=== PATIENT | female | born 1945 | race Caucasian/White ===

== ENCOUNTER → 2024-09-29 10:08 | Outpatient (REF) | payer MEDICARE, OTHER, SELFPAY | LOC: RCS 10:08 | PROVIDERS: ATTENDING PHYSICIAN Internal Medicine Cardiovascular Disease; FAMILY PHYSICIAN Family Medicine | DX: I48.0 Paroxysmal atrial fibrillation (principal) | CPT/HCPCS: 93306 ==

== ENCOUNTER → 2025-02-20 11:09 | Outpatient (REF) | payer MEDICARE, OTHER, SELFPAY ==
[2025-02-20 12:40] LABS: Hematocrit 42.1 % (37.0-47.0); Hemoglobin 14.4 g/dL (12.0-16.0); Mean Corp Hgb Conc. 34.2 g/dL (33.0-37.0); Mean Corpuscular Volume 95.7 fL (81.0-99.0); Nucleated Red Blood Cells % 0 %; Platelet Count 202 10^3/uL (130-400); Red Cell Dist. Width 12.5 % (11.5-14.5)
[2025-02-20 12:45] LABS: INR 1.29; PT 16.4 Sec (11.4-14.6)
[2025-02-20 13:56] LABS: ALT (SGPT) 15 U/L (0-35); AST (SGOT) 22 U/L (14-36); Albumin 4.2 g/dl (3.5-5.0); Alkaline Phosphatase 73 U/L (38-126); Blood Urea Nitrogen 20 mg/dl (7-17); Calcium 9.2 mg/dl (8.4-10.2); Carbon Dioxide 23 mmol/L (22-30); Chloride 106 mmol/L (98-107); Glucose 98 mg/dl (70-99); Magnesium 2.1 mg/dl (1.6-2.3); Potassium 4.2 mmol/L (3.5-5.1); Sodium 136 mmol/L (135-145); Total Protein 6.3 g/dl (6.3-8.2); eGFR > 60.00
== END ==
LOC: SDSPAT 11:09
PROVIDERS: ATTENDING PHYSICIAN Internal Medicine Cardiovascular Disease; FAMILY PHYSICIAN Family Medicine
DX: I48.0 Paroxysmal atrial fibrillation (principal)
CPT/HCPCS: 36415; 80053; 83735; 85025; 85610; 86850; 86900; 86901; 93005

== ENCOUNTER 2025-03-06 06:31 | Day surgery (SDC) | payer MEDICARE, OTHER, SELFPAY ==
--- NOTE | 2025-02-20 10:46 | HPS.HSE ---
Family Physician
-
Family Physician: NO INTERVIEW UNKNOWN
Chief Complaint
-
Paroxysmal atrial fibrillation.
History of Present Illness
The patient is a 79 year old female presenting today for paroxysmal atrial fibrillation. The patient previously underwent pulmonary vein isolation in 2011 and 2019 secondary to this diagnosis. She was scheduled to undergo a third ablation
in 2022; however, this was cancelled due to a large pericardial effusion which did require emergent pericardiocentesis. She is on current pharmacological therapy with Metoprolol Succinate; however, dosing has been reduced due to persistent fatigue
while on this medication. She reports compliance with Eliquis for oral anticoagulation. She is interested in pursuing pulmonary vein isolation again for further arrhythmia management. She denies any new complaints today such as chest pain, shortness
of breath at rest, palpitations, nausea, vomiting, diarrhea, lightheadedness, dizziness, cough, sore throat, or fever.
Medical History
Past Medical History
Past Medical History: Reports Other
Additional Past Medical History:
1. Paroxysmal atrial fibrillation, status post pulmonary vein isolation x2; pharmacological therapy with Metoprolol Succinate and oral anticoagulation with Eliquis.
2. Paroxysmal atrial tachycardia.
3. Hypertension.
4. Congestive heart failure, preserved ejection fraction.
5. Pericardial effusion, 2022, likely viral in origin, status post pericardiocentesis.
6. Mild-moderate aortic regurgitation.
7. History of recurrent left lower extremity DVT, unprovoked, on Eliquis; previous hypercoagulable work-up reportedly negative.
8. Mild obstructive sleep apnea per records.
9. Chronic dyspnea on exertion.
10. GERD.
11. Colon polyps.
12. Remote migraines.
13. Osteoarthritis.
14. Overactive bladder.
15. Squamous cell carcinoma, status post excision x2.
16. Depression.
17. Anxiety.
18. Osteopenia.
19. Remote history of infrequent tobacco abuse.
Past Surgical History: Reports Other
Additional Past Surgical History:
1. Pulmonary vein isolation x2.
2. Pericardiocentesis.
3. Total abdominal hysterectomy with cystocele and rectocele repair.
4. Bilateral tubal ligation.
5. D&E.
6. Squamous cell carcinoma excision x2.
7. Multiple epidural steroid injections.
8. Dental extraction and implantation.
9. Bilateral cataract extraction.
10. Colonoscopy x2.
11. Endoscopy.
Social History
Tobacco: Former Smoker (She is a former infrequent cigarette smoker who quit tobacco in her early 20's. )
Alcohol: Other (Rare. )
Personal:
Living: Alone (in a 2 story, bilevel home. )
Family History
Family History: Not pertinent
Allergies / Home Medications
Allergy/Medication List:
Home medications:
1. Acetaminophen 1000 mg p.o. every 6 hours as needed.
2. Alprazolam 0.25 mg p.o. daily as needed.
3. Calcium 1 dose p.o. daily.
4. Citalopram 40 mg p.o. daily.
5. Cyclobenzaprine 10 mg p.o. at bedtime.
6. Prolia 60 mg subcutaneous every 6 months.
7. Eliquis 5 mg p.o. twice a day.
8. Lansoprazole 15 mg p.o. twice a day.
9. Metoprolol Succinate 25 mg p.o. twice a day.
10. Multivitamin 2 gummies p.o. daily.
11. Oxybutynin Cl 10 mg p.o. daily.
12. Vitamin D3 1 dose p.o. daily.
13. Biocorneum 1 application topical twice a day.
Allergies: Sulfa. Codeine. Cat dander. Chocolate. House dust. Pollen.
Review of Systems
-
A 12 point ROS was completed and negative except as noted: Yes
Physical Exam
Vital Signs
Blood pressure 120/67. Heart rate 65. Respirations 18. Pulse ox 98% on room air.
Height 5 feet, 3 inches. Weight 74 kg. BMI 28.9.
Physical Exam
General: Well Developed, Well Nourished and No Apparent Distress
HEENT: NormoCephalic, Moist mucous membranes, Atraumatic and PERRLA
Respiratory: Clear
Cardiac: Regular Rhythm
GI: Soft, Non Tender and Non Distended
Musculoskeletal: No Edema and Normal Gait & Station
Skin: Warm and Dry
Neuro: AO x 3 and Nonfocal/grossly intact
Laboratory Results
-
DIAGNOSTIC STUDIES as of 02/20/2025: White blood cell count 4.8. Hemoglobin 14.4. Platelet count 202,000. PT 16.4. INR 1.29. Sodium 136. Potassium 4.2. BUN 20. Creatinine 0.8. Glucose 98. Calcium 9.2. Magnesium 2.1. AST 22. ALT 15. Albumin 4.2. Type
and screen O positive.
EKG 02/20/2025: Normal sinus rhythm. T wave abnormality, consider anterolateral ischemia.
Echocardiogram 09/29/2024: Normal left ventricular size, wall thickness, and systolic function. No regional wall motion abnormalities are seen. LV ejection fraction is 59% by Whitley's method of discs. Normal right ventricular size and function.
Trace mitral regurgitation. Mild to moderate aortic regurgitation. Trace tricuspid regurgitation. Estimated pulmonary artery pressure of 20-25 mmHg. Compared to prior study of 03/02/2023, the ejection fraction currently is 59% and previously 45-50%.
Impression/Plan
-
IMPRESSION/PLAN:
1. Paroxysmal atrial fibrillation: The patient is in need of pulmonary vein isolation with Dr. Boni Roque on 03/06/2025. The benefits and risks of pulmonary vein isolation have been explained to the patient. The patient understands these
risks and wishes to proceed. She will not be required to undergo a pre-procedural transesophageal echocardiogram as she has been compliant with her home oral anticoagulation. She is aware to continue her Eliquis up until the night prior to her
procedure. She will take no medications the morning of her procedure.
[2025-02-20 12:01] VITALS: BMI 28.9
[2025-03-06] VITALS (14 sets, daily range): BP systolic 105–142; BP diastolic 59–105
[2025-03-06] MEDS: NSS 500 IV (07:29)
--- NOTE | 2025-03-06 07:38 | ITS.CL.ABL ---
Director Of Community Services - Ablation
Ablation
Procedure Report:
ELECTROPHYSIOLOGIC STUDY AND POSSIBLE ABLATION
DATE: 03/06/25
Primary Care Provider: Dr Noé Guerra
INDICATION:
Symptomatic Atrial Fibrillation.
Paroxysmal
HISTORY: See H and P.
Symptomatic AF, poorly controlled with attempted medical therapy.
She underwent pulmonary vein isolation in 2011. She had been off AAD Rx but recurred with atrial fibrillation in 2019 with event monitor demonstrating 9.4 % afib burden,. She was started on elqiuis 04/18/20.
She underwent re-PVI 06/07/20 and did well until recurrence in 2022.
She then presented for PVI and found to have large pericardial effusion on preprocedure intracardiac echocardiogram. Planned ablation was canceled. She underwent pericardiocentesis (02/26/23) removing 625 cc of fluid and she was started on
anti-inflammatory therapy including colchicine. Pathology of the fluid was negative for malignant cells. She had an echocardiogram one week later before resuming eliquis. Repeat echocardiogram with small effusion, eliquis was resumed on 03/02/23.
Subsequent echocardiogram April 01, 2023 showed resolution of pericardial effusion as well as LVEF of 50 to 55% mild LVH mild to moderate aortic insufficiency.� She was maintained on colchicine for approximately 6 months.
Subsequent to pericardiocentesis she noted a significant reduction in burden of symptomatic atrial fibrillation.
She has been maintained on Eliquis 5 mg twice daily for atrial fibrillation related thromboembolic risk reduction and is tolerated well with no major bleeding complications.
More recently she has developed increasing burden of symptomatic atrial fibrillation and presents for mapping and ablation
HAS-BLED: 1
Age
CHADSVASc: 3
Age
F Gender
PRESENTING RHYTHM: SR
HISTORY: See H and P.
Symptomatic AF, poorly controlled with attempted medical therapy.
ANTICOAGULATION: Apixaban 5 mg twice daily
'TIME-OUT': called and confirmed.
SEDATION/ANESTHESIA: provided via the anesthesia department using general anesthesia.
PROCEDURE:
Ultrasound Guidance with real-time visualization of needle insertion and vessel patency performed by me for femoral venous Vascular Access.
Under real-time US guidance, the needle was advanced with negative pressure into the vein. The needle was seen entering the vessel lumen with a good return of dark red flow, the syringe was removed, non-pulsatile, dark red blood low was noted and
the wire was passed without difficulty, then the needle was removed. US confirmed the wire was in the vein, not going into an artery,
Images were taken and saved for the patient's permanent record. Imaging findings typical femoral venous anatomy. Direct visualization of needle puncture into the femoral vein was observed and recorded.
A decapolar CS catheter was placed within the CS for mapping and pacing.
The intracardiac ultrasound catheter was positioned in the RA for continuous intracardiac ultrasound imaging.
Heparin bolus and infusion to target ACT at 300 -350 seconds was administered. Transseptal puncture was performed. This entailed advancing a sheath with dilator into the superior vena cava and withdrawing both (monitoring intracardiac ultrasound,
fluoroscopy and tip pressure) with the tip oriented toward the atrial septum. The fossa ovalis was engaged (indicated by sudden displacement of the sheath tip as well as tenting of the fossa seen on intracardiac ultrasound).
Transseptal puncture was performed. Left atrial catheter position was confirmed by echocardiographic imaging, pressure monitoring (LA mean pressure 10 mm Hg) and fluoroscopy. The sheath was advanced over the dilator and positioned in the left
atrium.
The [employer] multipolar mapping/ablation Sphere-9 catheter was positioned through the transseptal sheath for high density mapping.
Geometry and voltage mapping was performed using the [employer] mapping system for three-dimensional electroanatomical mapping.
Catheter positioning was guided and confirmed using both I.C.E. and fluoroscopy.
High density electroanatomical three-dimensional mapping demonstrated LSPV, LIPV, RSPV, RIPV.
Reconnection at the left superior pulmonary vein along its anterior quadrant. Additionally there is connection at the left inferior pulmonary vein along its anterior quadrant abutting the ligament of Jack.
Ablation strategy included PVI as well as mapping for extra PV contributors to atrial fibrillation which would also be targeted if present.
First, post electric field energy was delivered to isolate the left-sided pulmonary veins using the sphere 9 catheter.
After accomplishing pulmonary venous isolation, mapping identified additional areas likely to be extra PV contributors to atrial fibrillation. These areas demonstrated patchy low voltage as well as complex fractionated electrograms. These areas can
be sites for the formation of rotors which can drive and maintain atrial fibrillation. These areas are known to be significant contributors to initiation and perpetuation of atrial fibrillation.
Additional energy applications/additional ablation sets targeted extra PV contributors to atrial fibrillation.
Targets for additional PFA ablation included:
LA posterior wall targeted with pulsed electric field energy isolating the posterior wall of the left atrium
After ablation of the posterior wall, additional targets were addressed:
LA inferior floor
The ridge of tissue between the left atrial appendage and the left sided pulmonary veins (Ligament of Jack )
These areas were ablated using pulsed electric field energy eliminating the extra PV contributors to atrial fibrillation.
Post ablation mapping finds entrance and exit block at each of the pulmonary veins (LSPV, LIPV, RSPV, RIPV), the LA posterior wall and at the additional lines at the Inferior/floor of the LA and the Ligament of Marshal rendering the sites no
longer able to contribute to atrial fibrillation.
Programmed electrostimulation including burst atrial pacing as well the delivery of decremental extrastimuli down to atrial effective refractory period were able to initiate nonsustained irregular atrial tachycardia which would self terminate in
less than 30 seconds.
Additional high density electroanatomical mapping identified a target just outside the right superior pulmonary vein at its anterior inferior quadrant.
Pulsed electric field energy was then delivered at the site.
Programmed electrical stimulation was then repeated and no sustained or unsustained arrhythmias could be induced except for up to 2-5 beats of nonsustained PAT.
And no sustained arrhythmias could be induced.
I.C.E. :
Pre-Ablation Post-Ablation
LVEF: 55 % 55 %
WMA: none none
Pericardial effusion: none none
COMPLICATIONS:
None
SUMMARY:
- Mapping and ablation to isolate the PVs resulting in electrical isolation of the pulmonary veins
- Additional AF ablation sets X 2 after PVI (LA posterior wall, Inf/floor of the LA posterior wall) resulting in elimination of the targeted extra PV contributors to atrial fibrillation (Post wall, Inf LA floor, ligament of Jack)
- Mapping and ablation of second tachycardia (left atrial tachycardia, micro reentrant at the anterior antrum and payton outside of the RSPV rendering it noninducible with programmed electrical stimulation
- 3-D Electroanatomical Mapping
- Intracardiac Ultrasound
- Ultrasound guidance for vascular access
Post ablation, I discussed today's findings and results with the patient's daughter, Katty.
RECOMMENDATIONS:
- Observe in monitored bed.
- Maintain oral anticoagulation, apixaban 5 mg twice daily
- Maintain metoprolol succinate 50 mg daily
- We will arrange outpatient office visit in 3 to 4 months
Copy to:
Dr Noé Guerra
[2025-03-06 08:41] LABS: ACT-LR - POC 372 Seconds (116-155)
[2025-03-06 09:27] LABS: ACT-LR - POC 358 Seconds (116-155)
[2025-03-06] MEDS: TYLENOL 650 MG PO (13:45)
[2025-03-06 15:07] LABS: ACT-LR - POC > 397 Seconds (116-155)
== END 2025-03-06 14:53 | disposition home or self-care (01) ==
LOC: CATH 06:31
PROVIDERS: ATTENDING PHYSICIAN Internal Medicine Cardiovascular Disease; FAMILY PHYSICIAN Family Medicine
DX: I48.0 Paroxysmal atrial fibrillation (principal); Z79.01 Long term (current) use of anticoagulants; F32.A Depression, unspecified; F41.9 Anxiety disorder, unspecified; G47.33 Obstructive sleep apnea (adult) (pediatric); I11.0 Hypertensive heart disease with heart failure; I47.19 Other supraventricular tachycardia; I50.32 Chronic diastolic (congestive) heart failure; M19.90 Unspecified osteoarthritis, unspecified site; M85.80 Other specified disorders of bone density and structure, unspecified site; Z86.0100 Personal history of colon polyps, unspecified; Z86.718 Personal history of other venous thrombosis and embolism; Z87.891 Personal history of nicotine dependence; Z88.2 Allergy status to sulfonamides; Z88.4 Allergy status to anesthetic agent; Z88.5 Allergy status to narcotic agent; Z90.710 Acquired absence of both cervix and uterus; N32.81 Overactive bladder; K21.9 Gastro-esophageal reflux disease without esophagitis; Z79.899 Other long term (current) drug therapy
CPT/HCPCS: C1894; C1733; C1769; C1766; C1730; C1892; 85347; 93005; 93655; 93656; 93657